=== PATIENT | female | born 1990 | race Caucasian/White ===

== ENCOUNTER 2021-08-20 18:13 | Emergency (ER) | payer OTHER, SELFPAY ==
[2021-08-20] VITALS (7 sets, daily range): BP systolic 109–131; BP diastolic 73–80; PULSE 74–98; RESP 17–24; TEMP 36.6; O2SAT 99–100
--- NOTE | ~2021-08-20 | XR_ITS ---
EXAMINATION: XR chest 2V DATE: 08/20/2021 20:54 INDICATION: Chest pain TECHNIQUE: PA and lateral views of the chest are obtained. COMPARISON: None available FINDINGS: The lungs are free of acute opacities. There is no pleural effusion or pneumothorax. The ca rdiomediastinal silhouette is normal. The visualized bones and soft tissues are unremarkable. IMPRESSION: 1. No acute cardiopulmonary abnormality. Reviewed, dictated and finalized at location F. ACTIONS TECHNOLOGIST
--- NOTE | 2021-08-20 19:14 | ECG_ITS ---
Measurements Intervals [place] Rate: 83 P: 80 [place]: 142 QRS: 53 QRSD: 86 T: 68 QT: 344 QTc: 405 Interpretive Statements SINUS RHYTHM BASELINE ARTIFACT- I, II, III, AVR, AVL NORMAL ECG Electronically Signed On 08-20-2021 20:04:06 [employer] by Frantz Becker D.O.
--- NOTE | 2021-08-20 20:52 | PC.NURSE ---
Pt to XRAY via stretcher.
--- NOTE | 2021-08-20 21:10 | ED.CHESTPAIN ---
HPI - Chest Pain General Chief Complaint: Chest Pain Stated Complaint: chest pain left side/left leg tingling Time Seen by Provider: 08/20/21 20:15 Source: patient and RN notes reviewed Mode of arrival: ambulatory Limitations: no limitations History of Present Illness HPI narrative: This is 30 year old female who presents for left chest pain and left leg pain. Patient states she noticed numbness and pain behind her left knee yesterday. This discomfort has been constant and it worsens with movement. She developed left chest pleuritic pain today so she became concerned. She denies fever, chills, cough, URI symptoms. SHe uses an IUD. She denies history of DVT or PE but she is concerned about blood clot. Related Data Home Medications Medication Instructions Recorded Confirmed No Home Medications 01/17/21 01/17/21 Allergies Allergy/AdvReac Type Severity Reaction Status Date / Time No Known Allergies Allergy Verified 08/20/21 20:13 Review of Systems Review of Systems: All systems reviewed & are unremarkable except as noted in HPI and below PMFSH Past Medical History Medical History (Updated 08/21/21 @ 00:56 by Luz Chavez MD) IUD (intrauterine device) in place Patient denies medical problems Surgical History Surgical History (Updated 08/21/21 @ 01:58 by Luz Chavez MD) History of breast augmentation Social History Social History (Updated 01/17/21 @ 14:00 by Holly Walter) Smoking status: Never smoker Alcohol intake: never Exam Const: General: no acute distress and alert Orientation/consciousness: patient oriented x3 Eyes: EOM: EOMs intact bilaterally Chest: Chest palpation & inspection: normal inspection of the chest Resp: Effort & Inspection: normal respiratory effort and no retractions Auscultation: clear to auscultation bilaterally Cardio: Rate: regular rate Rhythm: regular rhythm Heart sounds: no murmurs GI: GI Palp: Yes Soft to palpation, No Tenderness to palpation present (GI) and No Guarding due to palpation present (GI) Auscultation: normal bowel sounds Skin: General skin exam: normal color Rashes: no rashes Neuro: General: patient oriented x3, moves all extremities and CN's II-XI intact bilaterally Extrem: Other: pain behind calf, bilateral strong palpable pedal pulses DP, no swelling, no deformity Psych: Mental Status: mental status grossly normal Affect: normal affect Course Reevaluation(s) Reevaluation #1: Patient's labs and EKG have been unremarkable. She has bilateral equal DP pulses bilaterally. She will get venous US in the morning at 7 am. She has also been given dose of lovenox. I spoke with Dr. Schaeffer who will follow up on patient. Date: 08/21/21 Time: 00:52 Vital Signs Vital signs: Vital Signs Temperature 97.8 F 08/20/21 18:17 Pulse Rate 91 08/20/21 18:17 Respiratory Rate 17 08/20/21 18:17 Blood Pressure 131/80 08/20/21 18:17 Pulse Oximetry 100 08/20/21 18:17 Temperature 97.8 F 08/20/21 18:17 Pulse Rate 86 08/21/21 00:49 Respiratory Rate 16 08/21/21 00:49 Blood Pressure 112/76 08/20/21 23:47 Pulse Oximetry 99 08/21/21 00:49 MDM - Chest Pain Lab Data Attestation: I reviewed the patient's lab results. Result diagrams: 08/20/21 21:08 08/20/21 21:08 Labs: Lab Results 08/20/21 08/20/21 08/20/21 Range/Units 21:08 21:08 21:08 WBC 9.3 (4.5-10.0) K/mm3 RBC 4.20 (4.2-5.4) M/mm3 Hgb 13.5 (12.0-15.0) g/dL Hct 39.6 (37.0-47.0) % MCV 94.3 (80-100) fl MCH 32.1 (26-34) pg MCHC 34.1 (32-36) g/dl RDW 12.4 (11.5-14.5) % Plt Count 284 (150-375) k/mm3 MPV 10.1 (7.4-10.4) fl Immature Gran % (Auto) 0.3 (0-0.5) % Neut % (Auto) 62.4 (45.5-73.1) % Lymph % (Auto) 27.7 (18.3-44.2) % [place] % (Auto) 6.8 (2.6-8.5) % Eos % (Auto) 2.0 (0-4.4) % Baso % (Auto) 0.8 (0.2-1.2) % Lymph #
[2021-08-20 21:12] LABS: Basophils Absolute Auto 0.1 K/mm3 (0.0-0.1); Basophils Percent Auto 0.8 % (0.2-1.2); Eosinophils Absolute Auto 0.2 K/mm3 (0-0.3); Hematocrit 39.6 % (37.0-47.0); Hemoglobin 13.5 g/dL (12.0-15.0); Immature Granulocyte Absolute 0.03 K/mm3 (0.00-0.031); Immature Granulocyte Percent A 0.3 % (0-0.5); Lymphocytes Absolute Auto 2.58 K/mm3 (0.9-3.2); Lymphocytes Percent Auto 27.7 % (18.3-44.2); Mean Corpuscular HGB Conc 34.1 g/dl (32-36); Mean Corpuscular Hemoglobin 32.1 pg (26-34); Mean Corpuscular Volume 94.3 fl (80-100); Mean Platelet Volume 10.1 fl (7.4-10.4); Monocytes Absolute Auto 0.6 K/mm3 (0.1-0.6); Monocytes Percent Auto 6.8 % (2.6-8.5); Neutrophils Absolute Auto 5.8 K/mm3 (1.3-6.7); Neutrophils Percent Auto 62.4 % (45.5-73.1); Platelet Count Result 284 k/mm3 (150-375); Red Cell Distribution Width 12.4 % (11.5-14.5); White Blood Count 9.3 K/mm3 (4.5-10.0)
[2021-08-20 21:21] LABS: Prothrombin Time 12.9 Seconds (11.1-14.7)
[2021-08-20 21:22] LABS: Partial Thromboplastin Time 32.3 SECONDS (22.3-36.8)
[2021-08-20 21:40] LABS: D Dimer 0.27 ug/mL (<0.48)
[2021-08-20 21:41] LABS: Alanine Aminotransferase 12 U/L (4-35); Albumin Level 4.7 g/dL (3.5-5.1); Alkaline Phosphatase 49 U/L (38-126); Anion Gap 10 mmol/L (8-16); Aspartate Amino Transferase 28 U/L (14-36); Bilirubin,Total 0.5 mg/dL (0.2-1.3); Blood Urea Nitrogen 16 mg/dL (7-17); Calcium 9.3 mg/dL (8.4-10.2); Carbon Dioxide 24 mmol/L (22-30); Chloride 101 mmol/L (98-107); Estimated CRCL calculation 94 ml/min; Estimated Glomerular Filt Rate > 60; Glucose 99 mg/dL (65-110); Lipase 60 U/L (23-300); Potassium 3.9 mmol/L (3.4-5.0); Sodium 135 mmol/L (137-145)
[2021-08-20 21:51] LABS: Troponin I < 0.012 ng/mL (0.000-0.034)
[2021-08-21 00:48] LABS: Troponin I < 0.012 ng/mL (0.000-0.034)
[2021-08-21] MEDS: ENOXAPARIN 80 MG/0.8 ML SYRINGE 65 MG SUB-Q (00:48)
[2021-08-21 00:49] VITALS: PULSE 86; RESP 16; O2SAT 99
== END 2021-08-21 01:07 | disposition home or self-care (01) ==
PROVIDERS: Emergency Provider General Practice
DX: R07.89 Other chest pain (principal); M79.605 Pain in left leg; Z97.5 Presence of (intrauterine) contraceptive device
CPT/HCPCS: 36415; 71046; 80053; 81025; 83690; 84484; 85025; 85380; 85610; 85730; 93005; 96372; 99284; J1650

== ENCOUNTER 2021-08-21 07:33 | Outpatient (CLI) | payer OTHER, SELFPAY ==
--- NOTE | ~2021-08-21 | US_ITS ---
EXAMINATION: US venous doppler [facility] DATE: 08/21/2021 08:01 INDICATION: Left lower limb pain. TECHNIQUE: Grayscale ultrasound images without and with compression and Doppler ultrasound images of the left lower extremity veins were obtained. COMPARISON: None. FINDINGS: The visualized portions of left common femoral vein, profunda (deep) femoral vein, femoral vein, popl iteal vein, peroneal veins, posterior tibial veins, and greater saphenous vein outflow are patent. IMPRESSION: 1. No deep venous thrombosis. Reviewed, dictated and finalized at location D. [place] [employer] MA[employer]GER
== END 2021-08-21 07:34 | disposition home or self-care (01) ==
PROVIDERS: Visit Provider General Practice
DX: M79.662 Pain in left lower leg (principal)
CPT/HCPCS: 93971

== ENCOUNTER 2023-09-05 08:03 | Outpatient (CLI) | payer OTHER, SELFPAY ==
--- NOTE | ~2023-09-05 | US_ITS ---
EXAMINATION: US breast RT limited HISTORY: Palpable masses of the right breast near the nipple. TECHNIQUE: Limited right breast ultrasound was performed. FINDINGS: There are abutting oval, circumscribed, parallel, hypoechoic masses with no posterior featu res or internal vascularity near the nipple corresponding to the palpable abnormality of concern. The se measure 2.0 x 0.5 cm and 1.6 x 0.5 cm. IMPRESSION: Indeterminate right breast masses. Ultrasound guided biopsy is recommended. BI-RADS category 4, suspicious findings. Reviewed, dictated and finalized at location A. ING COORDINATOR
== END 2023-09-05 08:04 ==
PROVIDERS: PCP Emergency Medicine; Visit Provider Emergency Medicine
DX: N63.0 Unspecified lump in unspecified breast (principal); R92.8 Other abnormal and inconclusive findings on diagnostic imaging of breast
CPT/HCPCS: 76642